=== PATIENT | female | born 1955 | race Two or more races ===

== ENCOUNTER 2016-05-06 22:35 | Emergency (ER) | payer MEDICAID ==
--- NOTE | 2016-05-06 22:56 | EDPHY ---
H & P Stated Complaint: right sided headache since saturday HPI/ROS: HPI CHIEF COMPLAINT: Right-sided headache since Saturday HISTORY OF PRESENT ILLNESS: This patient very pleasant 60-year-old female, she presents emergency room with a right-sided burning/stabbing posterior headache. She denies neck pain or neck stiffness denies fever, denies visual disturbance , denies acute vomiting or nausea. Patient tells me that since Saturday she has had this ongoing stabbing headache in the right posterior occiput. At times goes to across the front of her head. It has been there for 5 days it was not thunderclap in nature it is not the worse headache of her life. She does tell me she has had similar headaches in the past. She tells me that she was in [place] a few weeks ago and had a diarrheal illness, she was seen by [facility] and told that she was dehydrated now is causing her headache. She presents emergency room as the headache has persisted she denies chest pain or shortness of breath, denies lateral neck pain, fever, vomiting visual disturbance or double vision. Her headache is located 6/10 right posterior occiput. Denies trauma. She denies being on blood thinners, denies history of HI or cardiac disease denies history of stroke Past Medical History: Hyperlipidemia Past Surgical History: no significant surgical history Social History: denies use of drugs alcohol tobacco products, lives locally here , followed by [facility] Family History: Noncontributory ROS REVIEW OF SYSTEMS: A comprehensive 10 point review of systems is otherwise negative aside from elements mentioned in the history of present illness. Exam Constitutional triage nursing summary reviewed, vital signs reviewed, awake/ alert. Eyes normal conjunctivae and sclera, EOMI, PERRLA. HENT normal inspection, atraumatic, moist mucus membranes, no epistaxis, neck supple/ no meningismus, no raccoon eyes. Respiratory clear to auscultation bilaterally, normal breath sounds, no respiratory distress, no wheezing. Cardiovascular rate normal, regular rhythm, no murmur, no edema, distal pulses normal. Gastrointestinal soft, non-tender, no rebound, no guarding, normal bowel sounds, no distension, no pulsatile mass. Genitourinary no CVA tenderness. Musculoskeletal no midline vertebral tenderness, full range of motion, no calf swelling, no tenderness of extremities, no meningismus, good pulses, neurovascularly intact. Skin pink, warm, & dry, no rash, skin atraumatic. Neurologic normal neurological exam, no focal neuro deficits. awake, alert and oriented x 3, AAOx3, moves all 4 extremities equally, motor intact, sensory intact, CN II-XII intact, normal cerebellar, normal vision, normal speech. Psychiatric normal mood/affect. Heme/Lymph/Immune no lymphadenopathy. Differential Diagnosis: Includes but is not limited to in a particular order, tension headache, cluster headache, intracranial bleed which I doubt given normal neurological exam and headache for 5 days, stress induced headache, migraine headache, radiculopathy from a nerve related headache Medical Decision Making: This patient will have an IV established will have a CT scan of her head her neurological exam is unremarkable, she will be medicated through an IV with abortive therapy for her headache. Of note here in the emergency room she appears well nontoxic no meningeal signs no pain with neck movement. Has a isolated right posterior occiput headache x5 days. Re-evaluation: CT scan of the head without IV contrast The results of the study are negative for acute intracranial abnormality specifically no bleed or tumor. The study was read by Dr. Zabala. I viewed the images myself on the PACS system. 0145: re-examination at this time this patient is resting comfortably no acute distress she feels much better after migraine cocktail, IV fluids she tells me that her headache is completely resolved. Repeat neurological exam is unremarkable specifically she has no numbness or tingling anywhere no focal weakness, denies having headache any longer. She is resting comfortably without any vomiting. Vital signs are normal. She is requesting be discharged home. Prescribed her ibuprofen 800 mg for headache however she gets worsening headache vomiting numbness or tingling weakness or fever she is return to the ER she understands. Source: Patient - Personal History Current Tetanus Diphtheria and Acellular Pertussis (TDAP): Yes - Medical/Surgical History Hx Asthma: No Hx Chronic Respiratory Disease: No Hx Diabetes: No Hx Cardiac Disease: No Hx Renal Disease: No Hx Cirrhosis: No Hx Alcoholism: No Hx HIV/AIDS: No Hx Splenectomy or Spleen Trauma: No Other PMH: kidney infection, HTN - Social History Smoking Status: Never smoked Constitutional: Initial Vital Signs Temperature (C) 36.8 C 05/06/16 22:40 Heart Rate 60 05/06/16 22:40 Respiratory Rate 18 05/06/16 22:40 Blood Pressure 157/65 H 05/06/16 22:40 O2 Sat (%) 94 05/06/16 22:40 O2 Delivery Mode Room Air O2 (L/minute) 2 Allergies/Adverse Reactions: morphine Allergy (Verified 05/06/16 22:39) Home Medications: Medication Instructions Recorded "Reflux Medicine" 06/11/11 Acetaminophen [Tylenol Extra 500 mg PO Q6PRN PRN 06/11/11 Strength] Hydrocodone Bit/Acetaminophen 1 - 2 tab PO Q4-6PRN PRN #14 tab 01/16/13 [Vicodin 5/500] Ibuprofen Unk 01/16/13 "Blood Pressure" 10/02/13 Cefdinir [Omnicef] 300 mg PO BID #20 cap 10/02/13 Hydrocodone/APAP 5/325 [[place] 1 - 2 tab PO Q4H PRN #15 tab 10/02/13 5/325 (*)] Ondansetron Odt [Zofran Odt 4 mg 4 mg PO Q4 PRN #6 tab 10/02/13 (*)] LORazepam [Ativan 1 mg (RX)] 1 mg PO Q6-8PRN PRN #20 tab 07/26/14 Ibuprofen [Motrin (*)] 800 mg PO Q6-8PRN #7 tab 05/07/16 Medical Decision Making - Data Points Laboratory Results: Laboratory Results 05/06/16 23:15 05/06/16 23:15 05/06/16 23:15 WBC 5.49 10^3/uL (3.80-9.50) RBC 4.37 10^6/uL (4.18-5.33) Hgb 12.2 L g/dL (12.6-16.3) Hct 37.5 L % (38.0-47.0) MCV 85.8 fL (81.5-99.8) MCH 27.9 pg (27.9-34.1) MCHC 32.5 g/dL (32.4-36.7) RDW 14.1 % (11.5-15.2) Plt Count 221 10^3/uL (150-400) MPV 10.4 fL (8.7-11.7) Neut % (Auto) 40.6 % (39.3-74.2) Lymph % (Auto) 47.9 H % (15.0-45.0) [place] % (Auto) 10.7 % (4.5-13.0) Eos % (Auto) 0.2 L % (0.6-7.6) Baso % (Auto) 0.4 % (0.3-1.7) Nucleat RBC Rel Count 0.0 % (0.0-0.2) Absolute Neuts (auto) 2.23 10^3/uL (1.70-6.50) Absolute Lymphs (auto) 2.63 10^3/uL (1.00-3.00) Absolute Monos (auto) 0.59 10^3/uL (0.30-0.80) Absolute Eos (auto) 0.01 L 10^3/uL (0.03-0.40) Absolute Basos (auto) 0.02 10^3/uL (0.02-0.10) Absolute Nucleated RBC 0.00 10^3/uL (0-0.01) Immature Gran % 0.2 % (0.0-1.1) Immature Gran # 0.01 10^3/uL (0.00-0.10) PT 13.0 SEC (12.0-15.0) INR 0.99 (0.83-1.16) APTT 26.2 SEC (23.0-38.0) Sodium 143 mEq/L (134-144) Potassium 3.6 mEq/L (3.5-5.2) Chloride 104 mEq/L (97-110) Carbon Dioxide 26 mEq/l (22-31) Anion Gap 13 mEq/L (8-16) BUN 15 mg/dL (7-23) Creatinine 0.6 mg/dL (0.6-1.0) Estimated GFR > 60 Glucose 98 mg/dL (70-100) Calcium 9.2 mg/dL (8.5-10.4) Medications Given: Discontinued Medications Dexamethasone (Decadron Injection) 10 mg IVP EDNOW ONE Stop: 05/06/16 23:20 Last Admin: 05/06/16 23:39 Dose: 10 mg Diphenhydramine HCl (Benadryl Injection) 50 mg IVP EDNOW ONE Stop: 05/06/16 23:20 Last Admin: 05/06/16 23:39 Dose: 50 mg Hydromorphone HCl (Dilaudid) 0.5 mg IVP EDNOW ONE Stop: 05/06/16 23:20 Last Admin: 05/06/16 23:40 Dose: 0.5 mg Sodium Chloride (Ns) 1,000 mls @ 0 mls/hr IV ONCE ONE PRN Reason: Wide Open Stop: 05/06/16 22:59 Last Admin: 05/06/16 23:24 Dose: 1,000 mls Ketorolac Tromethamine (Toradol) 30 mg IVP EDNOW ONE Stop: 05/06/16 23:20 Last Admin: 05/06/16 23:40 Dose: 30 mg Metoclopramide HCl (Reglan Injection) 10 mg IVP EDNOW ONE Stop: 05/06/16 23:20 Last Admin: 05/06/16 23:40 Dose: 10 mg Departure - Departure Disposition: Home, Routine, Self-Care Clinical Impression: Headache Qualifiers: Headache type: unspecified Headache chronicity pattern: acute headache Intractability: not intractable Qualifier Code: (R51) Headache Condition: Good Instructions: Acute Headache (ED) Additional Instructions: 1. Stay well-hydrated drink lots of fluids. 2. Return to the emergency room if develops worsening symptoms questions or concerns includes worsening headache, fever, vomiting Referrals: Pattie Nobles MD [Primary Care Provider] - As per Instructions Prescriptions: Ibuprofen [Motrin (*)] 800 mg PO Q6-8PRN #7 tab
[2016-05-06] MEDS ORDERED: NS 1,000 ML IV ONE (22:58)
--- NOTE | 2016-05-06 23:16 | CT ---
CT Brain (Without Contrast) at 2308 hours History: Headache. Comparison: None. Technique: Axial computed tomographic images of the brain without contrast. Dose reduction technique s were utilized. Findings: Ventricles, cisterns, and sulci are normal without atrophy, hydrocephalus, midline shift/h erniation, or epidural/subdural hematomas. No acute intraparenchymal hemorrhage, definite infarct, or mass effect. Bone windows demonstrate no displaced fractures. Paranasal sinuses and mastoid air cell s are clear. Impression: 1. Normal CT brain without contrast. 2. No sinusitis. 3.Consider MRI of the brain without and with contrast enhancement, if there is continued clinical con cern. Findings and recommendations discussed with Emergency Department physician, Dr. Max Luo at 23 10 hour, today. Final report concurs with initial preliminary interpretation.
[2016-05-06] MEDS ORDERED: KETOROLAC 30 MG/1 ML SDV IVP ONE (23:19)
[2016-05-06] MEDS ORDERED: METOCLOPRAMIDE 10 MG/2 ML VIAL IVP ONE (23:19)
[2016-05-06] MEDS ORDERED: DEXAMETHASONE 10 MG/ML VIAL IVP ONE (23:19)
[2016-05-06] MEDS ORDERED: HYDROmorphONE/DILAUDID 1 MG/ML SYR IVP ONE (23:19)
[2016-05-06 23:30] LABS: % IMMATURE GRANULYOCYTES 0.2 % (0.0-1.1); ABSOLUTE IMMATURE GRANULOCYTES 0.01 10^3/uL (0.00-0.10); ADD DIFF? NO; ADD MORPH? NO; ADD SCAN? NO; ATYPICAL LYMPHOCYTE FLAG 0 (0-99); FRAGMENT RBC FLAG 0 (0-99); HEMATOCRIT 37.5 % (38.0-47.0); HEMOGLOBIN 12.2 g/dL (12.6-16.3); LEFT SHIFT FLG 0 (0-99); LIPEMIA HEMOLYSIS FLAG 80 (0-99); MEAN CELL HEMOGLOBIN 27.9 pg (27.9-34.1); MEAN CELL HEMOGLOBIN CONCENTR. 32.5 g/dL (32.4-36.7); MEAN CELL VOLUME 85.8 fL (81.5-99.8); MEAN PLATELET VOLUME 10.4 fL (8.7-11.7); PLATELET CLUMPS FLAG 10 (0-99); PLATELET COUNT 221 10^3/uL (150-400); RED BLOOD CELL COUNT 4.37 10^6/uL (4.18-5.33); RED CELL DISTRIBUTION WIDTH 14.1 % (11.5-15.2)
[2016-05-06 23:38] LABS: INR 0.99 (0.83-1.16)
[2016-05-06 23:39] LABS: APTT 26.2 SEC (23.0-38.0)
[2016-05-06 23:49] LABS: ANION GAP 13 mEq/L (8-16); CALCIUM 9.2 mg/dL (8.5-10.4); CARBON DIOXIDE 26 mEq/l (22-31); CHLORIDE 104 mEq/L (97-110); CREATININE 0.6 mg/dL (0.6-1.0); GLOMERULAR FILTRATION RATE > 60; GLUCOSE 98 mg/dL (70-100); POTASSIUM 3.6 mEq/L (3.5-5.2); SODIUM 143 mEq/L (134-144)
[2016-05-07 01:34] VITALS: BP 137/70; PULSE 69; RESP 12; TEMP 97.9; O2SAT 93
== END 2016-05-07 02:00 | disposition home or self-care (01) ==
DX: R51 Headache (principal); I10 Essential (primary) hypertension
CPT/HCPCS: 96374; J1170; J1200; J1885; J2765

== ENCOUNTER 2016-12-27 19:12 | Emergency (ER) | payer MEDICAID ==
[2016-12-27 20:25] LABS: % IMMATURE GRANULYOCYTES 0.2 % (0.0-1.1); ABSOLUTE IMMATURE GRANULOCYTES 0.01 10^3/uL (0.00-0.10); ADD DIFF? NO; ADD MORPH? NO; ADD SCAN? NO; ATYPICAL LYMPHOCYTE FLAG 10 (0-99); FRAGMENT RBC FLAG 0 (0-99); HEMATOCRIT 37.9 % (38.0-47.0); HEMOGLOBIN 12.4 g/dL (12.6-16.3); LEFT SHIFT FLG 0 (0-99); LIPEMIA HEMOLYSIS FLAG 80 (0-99); MEAN CELL HEMOGLOBIN 27.7 pg (27.9-34.1); MEAN CELL HEMOGLOBIN CONCENTR. 32.7 g/dL (32.4-36.7); MEAN CELL VOLUME 84.8 fL (81.5-99.8); MEAN PLATELET VOLUME 9.9 fL (8.7-11.7); PLATELET CLUMPS FLAG 10 (0-99); PLATELET COUNT 209 10^3/uL (150-400); RED BLOOD CELL COUNT 4.47 10^6/uL (4.18-5.33); RED CELL DISTRIBUTION WIDTH 13.8 % (11.5-15.2)
[2016-12-27] MEDS ORDERED: IPRATROPIUM/ALBUTEROL 3 ML DEYVIAL IH ONE (20:38)
[2016-12-27] MEDS ORDERED: DEXAMETHASONE 4 MG TAB PO ONE (20:38)
[2016-12-27 20:40] LABS: ANION GAP 12 mEq/L (8-16); CALCIUM 9.8 mg/dL (8.5-10.4); CARBON DIOXIDE 25 mEq/l (22-31); CHLORIDE 103 mEq/L (97-110); CREATININE 0.7 mg/dL (0.6-1.0); GLOMERULAR FILTRATION RATE > 60; GLUCOSE 101 mg/dL (70-100); POTASSIUM 3.6 mEq/L (3.5-5.2); SODIUM 140 mEq/L (134-144)
--- NOTE | 2016-12-27 20:42 | EDPHY ---
H & P Stated Complaint: cough for 2 weeks worse at [facility] Time Seen by Provider: 12/27/16 20:21 HPI/ROS: CHIEF COMPLAINT: Cough HISTORY OF PRESENT ILLNESS: The patient is a 61-year-old female who comes to the emergency department complaining of a cough for the last 2 months. She states that it is productive for white sputum. No fever. Today she became concerned because she also developed chest pain. No shortness of breath. No history of cardiac disease. Nonsmoker. No history of pulmonary disease. She states that she had similar symptoms a year ago in the clinic and gave her albuterol and that seemed to help. REVIEW OF SYSTEMS: Constitutional: denies: chills, fever, recent illness, recent injury EENTM: denies: blurred vision, double vision, nose congestion Respiratory: See HPI Cardiac: See HPI denies: irregular heart rate, lightheadedness, palpitations Gastrointestinal/Abdominal: denies: abdominal pain, diarrhea, nausea, vomiting, blood streaked stools Genitourinary: denies: dysuria, frequency, hematuria, pain Musculoskeletal: denies: joint pain, muscle pain Skin: denies: lesions, rash, jaundice, bruising Neurological: denies: headache, numbness, paresthesia, tingling, dizziness, weakness Hematologic/Lymphatic: denies: blood clots, easy bleeding, easy bruising Immunologic/allergic: denies: HIV/AIDS, transplant EXAM: GENERAL: Well-appearing, obese and in no acute distress. HEAD: Atraumatic, normocephalic. EYES: Pupils equal round and reactive to light, extraocular movements intact, sclera anicteric, conjunctiva are normal. ENT: TMs normal, nares patent, oropharynx clear without exudates. Moist mucous membranes. NECK: Normal range of motion, supple without lymphadenopathy or JVD. LUNGS: Breath sounds clear to auscultation bilaterally and equal. No wheezes rales or rhonchi. HEART: Regular rate and rhythm without murmurs, rubs or gallops. ABDOMEN: Soft, nontender, normoactive bowel sounds. No guarding, no rebound. No masses appreciated. BACK: No CVA tenderness, no spinal tenderness, step-offs or deformities EXTREMITIES: Normal range of motion, no pitting or edema. No clubbing or cyanosis. NEUROLOGICAL: Cranial nerves II through XII grossly intact. Normal speech, normal gait. 5/5 strength, normal movement in all extremities, normal sensation PSYCH: Normal mood, normal affect. SKIN: Warm, dry, normal turgor, no visible rashes or lesions. Source: Patient Exam Limitations: No limitations - Personal History Current Tetanus/Diphtheria Vaccine: Yes Current Tetanus Diphtheria and Acellular Pertussis (TDAP): Yes - Medical/Surgical History Hx Asthma: No Hx Chronic Respiratory Disease: No Hx Diabetes: No Hx Cardiac Disease: No Hx Renal Disease: No Hx Cirrhosis: No Hx Alcoholism: No Hx HIV/AIDS: No Hx Splenectomy or Spleen Trauma: No Other PMH: kidney infection, HTN - Family History Significant Family History: No pertinent family hx - Social History Smoking Status: Never smoked Alcohol Use: Sober Drug Use: None Constitutional: Initial Vital Signs Temperature (C) 36.6 C 12/27/16 19:37 Heart Rate 70 12/27/16 19:37 Respiratory Rate 18 12/27/16 19:37 Blood Pressure 147/95 H 12/27/16 19:37 O2 Sat (%) 94 12/27/16 19:37 O2 Delivery Mode Room Air Allergies/Adverse Reactions: morphine Allergy (Verified 05/06/16 22:39) Home Medications: Medication Instructions Recorded Acetaminophen [Tylenol Extra 500 mg PO Q6PRN PRN 06/11/11 Strength] Albuterol [Proventil Neb] 3 ml IH QID PRN #20 deyvial 12/27/16 Medical Decision Making - Diagnostics EKG Interpretation: An EKG obtained and was read and documented in trace view. Please see trace view for full reading and report. Sinus rhythm, no acute ischemic changes ED Course/Re-evaluation: 9:30 p.m. the patient is feeling much better after albuterol and steroid dose. She is no longer coughing. I will treat her with at home albuterol. She has a nebulizer for her son. She would prefer ampules to inhaler. We discussed indications for returning. She has a follow-up with her clinic doctor in the next 2 days. Differential Diagnosis: Partial list of the Differential diagnosis considered include but were not limited to; bronchitis, reactive airway disease, pneumonia and although unlikely based on the history and physical exam, I also considered sinusitis, acute coronary disease, PE. I discussed these differential diagnoses and the plan with the patient as well as the usual and expected course. The patient understands that the diagnosis is provisional and that in medicine we are not always correct and that further workup is often warranted. Usual and customary warnings were given. All of the patient's questions were answered. The patient was instructed to return to the emergency department should the symptoms at all worsen or return, otherwise to followup with the physician as we discussed. - Data Points Laboratory Results: Laboratory Results 12/27/16 20:15 12/27/16 20:15 Medications Given: Discontinued Medications Albuterol/Ipratropium (Duoneb) 3 ml IH EDNOW ONE Stop: 12/27/16 20:39 Last Admin: 12/27/16 20:52 Dose: 3 ml Dexamethasone (Decadron) 10 mg PO EDNOW ONE Stop: 12/27/16 20:39 Last Admin: 12/27/16 20:52 Dose: 10 mg Departure - Departure Disposition: Home, Routine, Self-Care Clinical Impression: Acute bronchitis Condition: Fair Instructions: Acute Bronchitis (ED) Referrals: Pattie Nobles MD [Primary Care Provider] - 1-2 days without fail Prescriptions: Albuterol [Proventil Neb] 3 ml IH QID PRN #20 deyvial PRN Reason: Cough
--- NOTE | 2016-12-27 21:06 | CPEKG ---
Heart Rate: 56 RR Interval: 1071 P-R Interval: 156 QRSD Interval: 102 QT Interval: 456 QTC Interval: 441 P [place]: 35 QRS [place]: -8 T Wave [place]: 18 EKG Severity - ABNORMAL ECG - EKG Impression: SINUS RHYTHM EKG Impression: NONSPECIFIC T ABNORMALITIES, ANT-LAT LEADS Electronically Signed By: Obinna Reyes 28-Dec-2016 12:24:00
[2016-12-27 21:51] VITALS: BP 128/66; PULSE 62; RESP 16; TEMP 97.9; O2SAT 95
== END 2016-12-27 21:51 | disposition home or self-care (01) ==
DX: J20.9 Acute bronchitis, unspecified (principal); I10 Essential (primary) hypertension

== ENCOUNTER 2016-12-31 13:58 | Emergency (ER) | payer MEDICAID ==
[2016-12-31 14:05] VITALS: O2SAT 94
--- NOTE | 2016-12-31 14:44 | EDPHY ---
H & P Time Seen by Provider: 12/31/16 14:22 HPI/ROS: CHIEF COMPLAINT: Dyspnea HISTORY OF PRESENT ILLNESS: The patient is a 61-year-old female presenting with dyspnea with exertion. The patient had a cough for two months. She was diagnosed with bronchitis and started on Prednisone and an allergy medication. Since starting these medications her cough has improved. However, yesterday the patient developed acute shortness of breath. Her shortness of breath occurs with ambulation. She denies chest pain or lower extremity swelling. Last night the patient felt febrile and this morning she developed a sore throat that is worse with swallowing. No nausea, vomiting, or diarrhea. REVIEW OF SYSTEMS: A comprehensive 10 point review of systems is otherwise negative aside from elements mentioned in the history of present illness. Past Medical/Surgical History: Hypertension Social History: [place] speaking only. Smoking Status: Never smoked Physical Exam: General Appearance: Alert, pleasant Eyes: Pupils equal and round, no conjunctival pallor or injection ENT, Mouth: Mucous membranes moist Neck: Normal inspection Respiratory: Lungs are clear to auscultation Cardiovascular: Regular rate and rhythm Gastrointestinal: Abdomen is soft and non-tender Neurological: A&O, nonfocal, normal gait Skin: Warm and dry, no rash Extremities: Nontender, no pedal edema Psychiatric: Mood and affect normal Constitutional: Initial Vital Signs Temperature (C) 37.0 C 12/31/16 14:03 Heart Rate 82 12/31/16 14:03 Respiratory Rate 16 12/31/16 14:03 Blood Pressure 154/100 H 12/31/16 14:03 O2 Sat (%) 94 12/31/16 14:03 O2 Delivery Mode Room Air Allergies/Adverse Reactions: morphine Allergy (Verified 05/06/16 22:39) Home Medications: Medication Instructions Recorded Albuterol [Proventil Neb] 3 ml IH QID PRN #20 deyvial 12/27/16 Prednisone 12/31/16 Medical Decision Making - Diagnostics EKG Interpretation: EKG interpreted by me reveals normal sinus rhythm, rate 64, no ST or T segment changes. Imaging Results: Imaging Impressions Chest X-Ray 12/31/16 14:22 Impression: Stable negative chest. Chest/Thorax CTA 12/31/16 15:37 Impression: 1. No evidence of pulmonary embolus using CT protocol. Findings discussed with Babs Marks M.D. at 1615 hour, 12/31/2016. Imaging: Discussed imaging studies w/ disintegrator Radiologist, I viewed and interpreted images myself ED Course/Re-evaluation: Patient with ongoing cough presents with acute dyspnea with exertion. The patient was started on Prednisone and an allergy medication for an ongoing cough. Her cough has resolved since starting these medications. Yesterday the patient developed dyspnea while walking. She felt febrile last night and developed a sore throat this morning. Plan to check lab work including CBC, BMP , and D-dimer. Chest x-ray was ordered. Chest x-ray negative for acute disease. D-dimer is slightly elevated. Lab work is otherwise unremarkable. I ordered CTA chest to rule out PE, given elevated D- dimer, normal chest x-ray and advanced age. CTA chest is normal. No evidence of pneumonia or pulmonary embolism. She ambulated throughout the emergency department and her oxygen saturation remained 95% on room air. I feel that she is safe and stable for discharge home. She will follow up with her primary care provider for further evaluation. Warning signs discussed. Differential Diagnosis: Differential diagnosis includes though it is not limited to pneumonia, pneumothorax, pulmonary embolism, aortic dissection, pericarditis, acute coronary syndrome. - Data Points Laboratory Results: Laboratory Results 12/31/16 14:57 12/31/16 14:57 12/31/16 12/31/16 12/31/16 14:57 14:57 14:57 WBC 9.71 10^3/uL H 10^3/uL (3.80-9.50) RBC 4.53 10^6/uL 10^6/uL (4.18-5.33) Hgb 12.8 g/dL g/dL (12.6-16.3) Hct 38.6 % % (38.0-47.0) MCV 85.2 fL fL (81.5-99.8) MCH 28.3 pg pg (27.9-34.1) MCHC 33.2 g/dL g/dL (32.4-36.7) RDW 14.0 % % (11.5-15.2) Plt Count 237 10^3/uL 10^3/uL (150-400) MPV 10.2 fL fL (8.7-11.7) Neut % (Auto) 51.9 % % (39.3-74.2) Lymph % (Auto) 38.6 % % (15.0-45.0) [place] % (Auto) 8.8 % % (4.5-13.0) Eos % (Auto) 0.1 % L % (0.6-7.6) Baso % (Auto) 0.3 % % (0.3-1.7) Nucleat RBC Rel Count 0.0 % % (0.0-0.2) Absolute Neuts (auto) 5.04 10^3/uL 10^3/uL (1.70-6.50) Absolute Lymphs (auto) 3.75 10^3/uL H 10^3/uL (1.00-3.00) Absolute Monos (auto) 0.85 10^3/uL H 10^3/uL (0.30-0.80) Absolute Eos (auto) 0.01 10^3/uL L 10^3/uL (0.03-0.40) Absolute Basos (auto) 0.03 10^3/uL 10^3/uL (0.02-0.10) Absolute Nucleated RBC 0.00 10^3/uL 10^3/uL (0-0.01) Immature Gran % 0.3 % % (0.0-1.1) Immature Gran # 0.03 10^3/uL 10^3/uL (0.00-0.10) D-Dimer 0.66 ug/mLFEU H ug/mLFEU (0.00-0.50) Sodium 139 mEq/L mEq/L (134-144) Potassium 3.4 mEq/L L mEq/L (3.5-5.2) Chloride 103 mEq/L mEq/L (97-110) Carbon Dioxide 25 mEq/l mEq/l (22-31) Anion Gap 11 mEq/L mEq/L (8-16) BUN 19 mg/dL mg/dL (7-23) Creatinine 0.6 mg/dL mg/dL (0.6-1.0) Estimated GFR > 60 Glucose 96 mg/dL mg/dL (70-100) Calcium 9.6 mg/dL mg/dL (8.5-10.4) Troponin I < 0.012 ng/mL ng/mL (0.000-0.034) NT-Pro-B Natriuret Pep 47 pg/mL pg/mL (0-125) Departure - Departure Disposition: [facility] Clinical Impression: Dyspnea Qualifiers: Dyspnea type: dyspnea on exertion Qualified Code(s): R06.09 - Other forms of dyspnea Condition: Good Instructions: Dyspnea (ED) Additional Instructions: Please follow up with your primary care physician is symptoms persist. Return to the Emergency Department with new or worsening symptoms. Referrals: Pattie Nobles MD [Primary Care Provider] - As per Instructions Report Scribed for: Babs Marks Report Scribed by: Rima Smith Date of Report: 12/31/16 Time of Report: 14:44 Physician Review and Approval Statement: 12/31/16 14:44 Portions of this note were transcribed by a medical researcher. I personally performed the history, physical exam, and medical decision-making; and confirmed the accuracy of the information in the transcribed note.
--- NOTE | 2016-12-31 14:52 | CPEKG ---
Heart Rate: 64 RR Interval: 938 P-R Interval: 156 QRSD Interval: 98 QT Interval: 412 QTC Interval: 425 P [place]: 40 QRS [place]: -21 T Wave [place]: 17 EKG Severity - OTHERWISE NORMAL ECG - EKG Impression: SINUS RHYTHM EKG Impression: BORDERLINE LEFT AXIS DEVIATION Electronically Signed By: Babs Marks 31-Dec-2016 21:06:25
[2016-12-31 15:04] LABS: % IMMATURE GRANULYOCYTES 0.3 % (0.0-1.1); ABSOLUTE IMMATURE GRANULOCYTES 0.03 10^3/uL (0.00-0.10); ADD DIFF? NO; ADD MORPH? NO; ADD SCAN? NO; ATYPICAL LYMPHOCYTE FLAG 0 (0-99); FRAGMENT RBC FLAG 0 (0-99); HEMATOCRIT 38.6 % (38.0-47.0); HEMOGLOBIN 12.8 g/dL (12.6-16.3); LEFT SHIFT FLG 0 (0-99); LIPEMIA HEMOLYSIS FLAG 80 (0-99); MEAN CELL HEMOGLOBIN 28.3 pg (27.9-34.1); MEAN CELL HEMOGLOBIN CONCENTR. 33.2 g/dL (32.4-36.7); MEAN CELL VOLUME 85.2 fL (81.5-99.8); MEAN PLATELET VOLUME 10.2 fL (8.7-11.7); PLATELET CLUMPS FLAG 10 (0-99); PLATELET COUNT 237 10^3/uL (150-400); RED BLOOD CELL COUNT 4.53 10^6/uL (4.18-5.33)
[2016-12-31 15:39] LABS: ANION GAP 11 mEq/L (8-16); CALCIUM 9.6 mg/dL (8.5-10.4); CARBON DIOXIDE 25 mEq/l (22-31); CHLORIDE 103 mEq/L (97-110); CREATININE 0.6 mg/dL (0.6-1.0); GLOMERULAR FILTRATION RATE > 60; GLUCOSE 96 mg/dL (70-100); POTASSIUM 3.4 mEq/L (3.5-5.2); SODIUM 139 mEq/L (134-144)
[2016-12-31] MEDS ORDERED: IOPAMIDOL (ISOVUE 370) 100 ML BTL IV ONE ×2 (15:41→15:47)
[2016-12-31 15:52] LABS: TROPONIN I < 0.012 ng/mL (0.000-0.034)
[2016-12-31 17:39] VITALS: BP 124/80; PULSE 80; RESP 18; TEMP 98.2
== END 2016-12-31 17:40 | disposition home or self-care (01) ==
DX: R06.09 Other forms of dyspnea (principal); I10 Essential (primary) hypertension
CPT/HCPCS: Q9967

== ENCOUNTER 2017-03-11 21:55 | Emergency (ER) | payer MEDICAID ==
[2017-03-11 21:59] VITALS: RESP 16; TEMP 98.1; O2SAT 95
[2017-03-11] MEDS ORDERED: NS 1,000 ML IV ONE (22:30)
[2017-03-11] MEDS ORDERED: KETOROLAC 15 MG/1 ML SDV IVP ONE (22:31)
--- NOTE | 2017-03-11 22:34 | EDPHY ---
H & P Stated Complaint: R sided abd pain Time Seen by Provider: 03/11/17 22:17 HPI/ROS: History obtained via Yoruba speaking entry level marketing assistant at the bedside. HPI The patient presents with right-sided abdominal pain which began at about 6:00 a.m. this morning slowly. It is been constant throughout the day. She describes it as an inflamed sensation associated with bloating. She says the pain is worse with movement and relieved by rest. She has been drinking plenty of fluids and tea today without any improvement in her symptoms. She had 2 bowel movements this morning which is normal for her. She has not had any vomiting. She does report a decreased appetite. She is 5 years status post cholecystectomy and 15 year status post ARMANDO. She has no history of similar pain. REVIEW OF SYSTEMS Constitutional: No fever, no chills. Eyes: No discharge. ENT: No sore throat. Cardiovascular: No chest pain, no palpitations. Respiratory: No cough, no shortness of breath. Gastrointestinal: Positive for abdominal pain, no vomiting. Genitourinary: No hematuria. Musculoskeletal: No back pain. Skin: No rashes. Neurological: No headache. PMHx: Obesity, status post cholecystectomy Soc Hx: Housed with family PHYSICAL General Appearance: Alert, no distress Eyes: Pupils equal and round no pallor or injection ENT, Mouth: Mucous membranes moist Respiratory: There are no retractions, lungs are clear to auscultation Cardiovascular: Regular rate and rhythm Gastrointestinal: Abdomen is soft, obese, with tenderness in the right lower quadrant which is moderate in severity Neurological: A&O, moves all extremities Skin: Warm and dry, no rashes Musculoskeletal: Neck is supple non tender Extremities: symmetrical, full range of motion Psychiatric: Patient is oriented X 3, there is no agitation Source: Patient, [place] Compounder Exam Limitations: No limitations - Personal History Current Tetanus/Diphtheria Vaccine: Yes - Medical/Surgical History Hx Asthma: No Hx Chronic Respiratory Disease: No Hx Diabetes: No Hx Cardiac Disease: No Hx Renal Disease: No Hx Cirrhosis: No Hx Alcoholism: No Hx HIV/AIDS: No Hx Splenectomy or Spleen Trauma: No Other PMH: HTN, gallbladder removed - Social History Smoking Status: Never smoked Constitutional: Initial Vital Signs Temperature (C) 36.7 C 03/11/17 21:56 Heart Rate 58 L 03/11/17 21:56 Respiratory Rate 16 03/11/17 21:56 Blood Pressure 147/44 H 03/11/17 21:56 O2 Sat (%) 95 03/11/17 21:56 O2 Delivery Mode Room Air Allergies/Adverse Reactions: morphine Allergy (Verified 03/11/17 22:00) Home Medications: Medication Instructions Recorded NK [No Known Home Meds] 03/11/17 Medical Decision Making - Diagnostics Imaging Results: Imaging Impressions Abdomen CT 03/11/17 22:30 Impression: 1. Right anterior mesenteric epiploic appendagitis. 2. No CT evidence of appendicitis, abscess or bowel obstruction. 3. Sigmoid diverticulosis without diverticulitis. 4. Moderate central canal stenosis at L4-L5 secondary to degenerative facet arthropathy. Findings and recommendations discussed with Emergency Department physician, Maye Holley MD at 23:35 hour, 03/11/2017. Final report concurs with initial preliminary interpretation. Imaging: Discussed imaging studies w/ note keeper Radiologist, I viewed and interpreted images myself Differential Diagnosis: 61-year-old female history of hypertension, status post cholecystectomy and hysterectomy presents from home with 1 day of right-sided lower abdominal pain associated with diminished appetite. Differential diagnosis includes appendicitis, ovarian cyst or torsion, constipation, enteritis. In the emergency department, patient was given IV fluids for presumed volume depletion. Basic labs were checked and were unremarkable. She was given pain medication. On repeat examination, she was feeling much better. CT scan of the abdomen was performed which did demonstrate epiploic appendagitis in location of the patient's pain, I feel this likely is the cause of her symptoms. I have discussed this with her and her family members. I have explained that the treatment is ibuprofen for the next several days. If her pain improved, no further treatment as needed. If she has any ongoing symptoms, I have referred her to the on-call general surgeon Dr. Logan for follow-up. She feels well enough to go home and is in agreement with this plan. - Data Points Laboratory Results: Laboratory Results 03/11/17 22:34 03/11/17 22:34 03/11/17 03/11/17 03/11/17 23:00 22:34 22:34 WBC 7.52 10^3/uL 10^3/uL (3.80-9.50) RBC 4.54 10^6/uL 10^6/uL (4.18-5.33) Hgb 12.9 g/dL g/dL (12.6-16.3) Hct 38.5 % % (38.0-47.0) MCV 84.8 fL fL (81.5-99.8) MCH 28.4 pg pg (27.9-34.1) MCHC 33.5 g/dL g/dL (32.4-36.7) RDW 13.9 % % (11.5-15.2) Plt Count 199 10^3/uL 10^3/uL (150-400) MPV 10.1 fL fL (8.7-11.7) Neut % (Auto) 46.0 % % (39.3-74.2) Lymph % (Auto) 43.5 % % (15.0-45.0) Bee % (Auto) 9.8 % % (4.5-13.0) Eos % (Auto) 0.0 % L % (0.6-7.6) Baso % (Auto) 0.4 % % (0.3-1.7) Nucleat RBC Rel Count 0.0 % % (0.0-0.2) Absolute Neuts (auto) 3.46 10^3/uL 10^3/uL (1.70-6.50) Absolute Lymphs (auto) 3.27 10^3/uL H 10^3/uL (1.00-3.00) Absolute Monos (auto) 0.74 10^3/uL 10^3/uL (0.30-0.80) Absolute Eos (auto) 0.00 10^3/uL L 10^3/uL (0.03-0.40) Absolute Basos (auto) 0.03 10^3/uL 10^3/uL (0.02-0.10) Absolute Nucleated RBC 0.00 10^3/uL 10^3/uL (0-0.01) Immature Gran % 0.3 % % (0.0-1.1) Immature Gran # 0.02 10^3/uL 10^3/uL (0.00-0.10) Sodium 138 mEq/L mEq/L (134-144) Potassium 3.4 mEq/L L mEq/L (3.5-5.2) Chloride 101 mEq/L mEq/L (97-110) Carbon Dioxide 25 mEq/l mEq/l (22-31) Anion Gap 12 mEq/L mEq/L (8-16) BUN 13 mg/dL mg/dL (7-23) Creatinine 0.6 mg/dL mg/dL (0.6-1.0) Estimated GFR > 60 Glucose 84 mg/dL mg/dL (70-100) Calcium 9.7 mg/dL mg/dL (8.5-10.4) Total Bilirubin 0.1 mg/dL mg/dL (0.1-1.4) Conjugated Bilirubin 0.0 mg/dL mg/dL (0.0-0.5) Unconjugated Bilirubin 0.1 mg/dL mg/dL (0.0-1.1) AST 34 IU/L IU/L (14-46) ALT 59 IU/L H IU/L (9-52) Alkaline Phosphatase 65 IU/L IU/L (38-126) Total Protein 7.5 g/dL g/dL (6.3-8.2) Albumin 4.5 g/dL g/dL (3.5-5.0) Lipase 110 IU/L IU/L (23-300) Urine Color PALE YELLOW Urine Appearance CLEAR Urine pH 5.0 (5.0-7.5) Ur Specific Bynum 1.004 (1.002-1.030) Urine Protein NEGATIVE (NEGATIVE) Urine Ketones NEGATIVE (NEGATIVE) Urine Blood NEGATIVE (NEGATIVE) Urine Nitrate NEGATIVE (NEGATIVE) Urine Bilirubin NEGATIVE (NEGATIVE) Urine Urobilinogen NEGATIVE EU EU (0.2-1.0) Ur Leukocyte Esterase NEGATIVE (NEGATIVE) Urine Glucose NEGATIVE (NEGATIVE) Medications Given: Discontinued Medications Sodium Chloride (Ns) 1,000 mls @ 0 mls/hr IV EDNOW ONE; Wide Open PRN Reason: Protocol Stop: 03/11/17 22:31 Last Admin: 03/11/17 22:37 Dose: 1,000 mls Ketorolac Tromethamine (Toradol) 15 mg IVP EDNOW ONE Stop: 03/11/17 22:32 Last Admin: 03/11/17 22:37 Dose: 15 mg Departure - Departure Disposition: Home, Routine, Self-Care Clinical Impression: Epiploic appendagitis Condition: Good Instructions: Acute Abdominal Pain (ED) Additional Instructions: You should take ibuprofen 600 mg every 6 hours for your pain. The pain should last for just a few days, if it continues, you should call Dr. Logan to arrange for a follow-up appointment. You should return to the emergency department if you get worse at all. Referrals: Pattie Nobles MD [Primary Care Provider] - As per Instructions Yaakov Logan MD [Medical Doctor] - As per Instructions Print Language: Yoruba
[2017-03-11 22:46] LABS: % IMMATURE GRANULYOCYTES 0.3 % (0.0-1.1); ABSOLUTE IMMATURE GRANULOCYTES 0.02 10^3/uL (0.00-0.10); ADD DIFF? NO; ADD MORPH? NO; ADD SCAN? NO; ATYPICAL LYMPHOCYTE FLAG 10 (0-99); FRAGMENT RBC FLAG 0 (0-99); HEMATOCRIT 38.5 % (38.0-47.0); HEMOGLOBIN 12.9 g/dL (12.6-16.3); LEFT SHIFT FLG 0 (0-99); LIPEMIA HEMOLYSIS FLAG 80 (0-99); MEAN CELL HEMOGLOBIN 28.4 pg (27.9-34.1); MEAN CELL HEMOGLOBIN CONCENTR. 33.5 g/dL (32.4-36.7); MEAN CELL VOLUME 84.8 fL (81.5-99.8); MEAN PLATELET VOLUME 10.1 fL (8.7-11.7); PLATELET CLUMPS FLAG 0 (0-99); PLATELET COUNT 199 10^3/uL (150-400); RED BLOOD CELL COUNT 4.54 10^6/uL (4.18-5.33); RED CELL DISTRIBUTION WIDTH 13.9 % (11.5-15.2)
[2017-03-11 22:57] LABS: ALANINE AMINOTRANSFERASE 59 IU/L (9-52); ALBUMIN 4.5 g/dL (3.5-5.0); ALKALINE PHOSPHATASE 65 IU/L (38-126); ANION GAP 12 mEq/L (8-16); ASPARTATE AMINOTRANSFERASE 34 IU/L (14-46); BILIRUBIN,TOTAL 0.1 mg/dL (0.1-1.4); BILIRUBIN-UNCONJUGATED 0.1 mg/dL (0.0-1.1); CALCIUM 9.7 mg/dL (8.5-10.4); CARBON DIOXIDE 25 mEq/l (22-31); CHLORIDE 101 mEq/L (97-110); CREATININE 0.6 mg/dL (0.6-1.0); GLOMERULAR FILTRATION RATE > 60; GLUCOSE 84 mg/dL (70-100); POTASSIUM 3.4 mEq/L (3.5-5.2); SODIUM 138 mEq/L (134-144); TOTAL PROTEIN 7.5 g/dL (6.3-8.2)
[2017-03-11] MEDS ORDERED: IOPAMIDOL (ISOVUE-300) 100 ML BTL ONE (23:07)
[2017-03-12 00:08] LABS: COLOR PALE YELLOW; LEUKOCYTE ESTERASE,URINE NEGATIVE (NEGATIVE); NITRITE,URINE NEGATIVE (NEGATIVE)
[2017-03-12 00:31] VITALS: BP 138/75; PULSE 62
== END 2017-03-12 00:31 | disposition home or self-care (01) ==
DX: K92.89 Other specified diseases of the digestive system (principal); I10 Essential (primary) hypertension; E86.9 Volume depletion, unspecified; Z90.49 Acquired absence of other specified parts of digestive tract
CPT/HCPCS: 96374; J1885; Q9967

== ENCOUNTER → 2018-06-06 | Outpatient (CLI) | payer MEDICAID | LOC: FIMAGING 09:43 | PROVIDERS: ATTEND Family Medicine | DX: Z12.31 Encounter for screening mammogram for malignant neoplasm of breast (principal) ==